=== PATIENT | female | born 1945 | race Caucasian/White ===

== ENCOUNTER → 2019-09-07 | Outpatient (CLI) | payer BC ==
[~2019-09-07] MED LIST: BENICAR HCT 12.1 TA1 PO; BUPROBAN150 MG PO; CRESTOR20 MG PO; EEMT HS PO; FOLIC ACID 40400 MCG PO; IBU800 M1 PO; IRON FERROUS S325 MG PO; MOBIC15 MG PO; PRILOSEC 20MG20 MG PO; SINGULAIR 110 MG/TAB PO; VITAMIN B-12100 MCG PO; VITAMIN C BUFF500 MG PO; VITAMIN D31000 IU PO; WELLBUTRIN 75MG75 MG PO; ZYRTEC 10MG10 MG PO; [UNRECOGNIZED DRUG - OTHER] PO
== END ==
LOC: COL.RAD 08:15
DX: N18.3 Chronic kidney disease, stage 3 (moderate) (principal)

== ENCOUNTER 2021-05-11 16:17 | Emergency (ER) | payer MEDICARE, BC ==
[~2021-05-11] VITALS: Ht 175.3 cm; Wt 59.1 kg
[2021-05-11 17:02] VITALS: TEMP 98.2
[2021-05-11 18:33] VITALS: BP 137/63; PULSE 83
== END 2021-05-11 18:33 | disposition home or self-care (01) ==
LOC: COL.ER 16:17
DX: S76.012A Strain of muscle, fascia and tendon of left hip, initial encounter (principal); I10 Essential (primary) hypertension; F17.200 Nicotine dependence, unspecified, uncomplicated; Z96.642 Presence of left artificial hip joint; Z79.899 Other long term (current) drug therapy; W10.8XXA Fall (on) (from) other stairs and steps, initial encounter; Y92.511 Restaurant or cafe as the place of occurrence of the external cause

== ENCOUNTER → 2024-03-19 | Outpatient (CLI) | payer MEDICARE ==
[~2024-03-19] MED LIST changes: +Triamcinolone 40 MG/ML 1 ML VIAL IJ SCH
== END ==
LOC: COL.RAD 13:46
DX: M54.50 Low back pain, unspecified (principal)
CPT/HCPCS: G0260; J0665; J3301